=== PATIENT | male | born 1995 | race African-American/Black ===

== ENCOUNTER 2020-12-11 07:26 | Emergency (ER) | payer BC ==
[~2020-12-11] VITALS: Ht 180.3 cm; Wt 77.0 kg
[2020-12-11] MEDS ORDERED: OXYCODONE HCL/ACETAMINOPHEN 5/325MG TABLET PO ONE (08:00)
[2020-12-11 08:05] VITALS: BP 119/61
[2020-12-11] MEDS ORDERED: IBUP-2028 PO (08:33)
[2020-12-11] MEDS ORDERED: T3 PO (08:33)
== END 2020-12-11 08:43 | disposition home or self-care (01) ==
LOC: ER 07:26
DX: M25.512 Pain in left shoulder (principal); Y93.67 Activity, basketball; X58.XXXA Exposure to other specified factors, initial encounter; Y92.9 Unspecified place or not applicable
CPT/HCPCS: 73030; 99283; A4565